=== PATIENT | female | born 2000 | race Caucasian/White ===

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

== ENCOUNTER 2019-06-21 06:22 | Inpatient (IN) ==
[2019-06-21] MEDS ORDERED: RINGER'S SOLUTION,LACTATED 1,000 ML IV PRN (07:51)
[2019-06-21] MEDS ORDERED: OXYTOCIN/DEXTROSE 5%-WATER 30 UNITS/500 ML BAG IV ONE ×2 (07:51→16:45)
[2019-06-21] MEDS ORDERED: RINGER'S SOLUTION,LACTATED 1,000 ML IV ONE (07:51)
[2019-06-21] MEDS ORDERED: PENICILLIN G POTASSIUM 5 MILLIONUNT in DEXTROSE 5 % IN WATER 100 ML IV ONE ×2 (07:51)
[2019-06-21 08:22] LABS: Hematocrit 33.1 % (37.0-47.0); Hemoglobin 10.8 gm/dL (12.5-16.0); Mean Cell Volume 83.6 fl (78-100); Mean Corpuscular Hemoglobin 27.3 pg (27-31); Mean Corpuscular Hgb Conc 32.6 g/dl (32-36); Mean Platelet Volume 10.1 fl (8-12.5); Neutrophil # 7.1 K/mm3 (1.3-6.0); Neutrophil % 66.4 % (42-75.0); Platelet Count 303 K/mm3 (150-450); Red Blood Count 3.96 M/mm3 (4.2-5.4); Red Cell Distribution Width 13.8 % (11.5-14.0); White Blood Count 10.7 K/mm3 (4.0-10.5)
[2019-06-21 08:37] LABS: Cocaine Ur Negative (NEGATIVE); Urine Barbiturate Negative (NEGATIVE); Urine Benzodiazepines Negative (NEGATIVE); Urine Opiates Negative (NEGATIVE); Urine PCP Negative (NEGATIVE); Urine THC Negative (NEGATIVE)
--- NOTE | 2019-06-21 10:22 | HP ---
Chief Complaint - Chief Complaint Date of Service: 06/21/19 Time of Service: 10:15 Chief Complaint: Labor, rupture of membranes History of Present Illness: 19 year old @ 37w 0d who presents to labor and delivery complaining of regular contractions and loss of fluid since 0200. She denies vaginal bleeding. Fetus is active. Medical History (Updated 10/30/18 @ 06:10 by Ab Boo MD) Premature rupture of membranes (PROM) affecting first (Acute) Onset Date: ~08/2018 labor in third trimester (Acute) Onset Date: ~08/2018 History of marijuana use (Acute) Onset Date: ~08/2018 Insufficient care (Acute) Onset Date: ~08/2018 Rubella non-immune status, antepartum (Acute) Onset Date: ~08/2018 Bipolar disorder (Acute) Onset Date: Unknown Anxiety and depression (Acute) Onset Date: Unknown Chlamydia Onset Date: ~08/2018 History of substance use Onset Date: ~08/2018 Premature delivery Onset Date: 08/13/18 @ 35 wks Unspecified congenital anomaly of heart 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 Surgical History: Surgical History (Updated 10/30/18 @ 04:13 by Yarelis Millard RN) H/O dilation and curettage Onset Date: Unknown Previous back surgery Family History: Family History (Updated 08/13/18 @ 20:07 by Eric Stewart DO) Mother Factor V Leiden mutation Social History: (Last Reviewed 06/21/19 @ 10:18 by Nay Dey MD) Tobacco: Smoking Status: Current every day smoker tobacco type: cigars Review Of Systems (GEN) - Review of Systems Generalized/Overall Review: Present: No Symptoms Reported Genitourinary: Present: Other - contractions and loss of fluid Misc: All systems neg except as marked Immunizations: IMMUNIZATION HX Immunizations Up to Date Yes History of Influenza Vaccine No Hx Pneumococcal Vaccination No Allergies/Adverse Reactions: Allergies Allergy/AdvReac Type Severity Reaction Status Date / Time Influenza Virus Vaccines Allergy Verified 06/21/19 07:50 latex Allergy Verified 06/21/19 07:50 peanut Allergy Verified 06/21/19 07:50 Home Medications: HOME MEDICATIONS NK 06/21/19 [Last Taken Unknown] Exam - Exam Vital Signs: Vital Signs - Last Taken Temp 36.7 C 06/21/19 06:45 Pulse 71 06/21/19 06:45 Resp 18 06/21/19 06:45 BP 110/64 06/21/19 06:45 Pulse Ox 98 06/21/19 06:45 Constitutional: Present: Alert, Oriented x3, Cooperative, No distress Respiratory: Present: lungs clear, normal breath sounds Cardiovascular/Chest: Present: regular rate, rhythm, no murmur Abdomen: Present: soft, nontender, nondistended /Rectal: Present: Other - /- Extremity: Present: non-tender, no calf tenderness Skin Exam: Present: normal color, warm/dry, no cyanosis Appearance: Present: appropriate appearance Eye contact: Present: cooperative Thoughts: Present: normal thought pattern Diagnostic Studies: Abnormal Lab Results 06/21/19 Range/Units 08:10 WBC 10.7 H (4.0-10.5) K/mm3 RBC 3.96 L (4.2-5.4) M/mm3 Hgb 10.8 L (12.5-16.0) gm/dL Hct 33.1 L (37.0-47.0) % Immature Gran % (Auto) 1.00 H (0.001-0.429) % Immature Gran # (Auto) 0.11 H (0.000-0.0310) K/mm3 Neutrophils # 7.1 H (1.3-6.0) K/mm3 Laboratory Results WBC 10.7 K/mm3 (4.0-10.5) H 06/21/19 08:10 RBC 3.96 M/mm3 (4.2-5.4) L 06/21/19 08:10 Hgb 10.8 gm/dL (12.5-16.0) L 06/21/19 08:10 Hct 33.1 % (37.0-47.0) L 06/21/19 08:10 MCV 83.6 fl (78-100) 06/21/19 08:10 MCH 27.3 pg (27-31) 06/21/19 08:10 MCHC 32.6 g/dl (32-36) 06/21/19 08:10 RDW 13.8 % (11.5-14.0) 06/21/19 08:10 Plt Count 303 K/mm3 (150-450) 06/21/19 08:10 MPV 10.1 fl (8-12.5) 06/21/19 08:10 Immature Gran % (Auto) 1.00 % (0.001-0.429) H 06/21/19 08:10 Immature Gran # (Auto) 0.11 K/mm3 (0.000-0.0310) H 06/21/19 08:10 66.4 % (42-75.0) 06/21/19 08:10 22.2 % (20-51) 06/21/19 08:10 7.7 % (0.0-9) 06/21/19 08:10 2.1 % (0.0-3.0) 06/21/19 08:10 0.6 % (0.0-1.0) 06/21/19 08:10 Nucleated RBC % 0.0 k/mm3 (0-1) 06/21/19 08:10 7.1 K/mm3 (1.3-6.0) H 06/21/19 08:10 2.38 k/mm3 (1.5-3.5) 06/21/19 08:10 0.8 k/mm3 (0.0-1.0) 06/21/19 08:10 0.2 k/mm3 (0.0-0.7) 06/21/19 08:10 Absolute Basophils 0.1 k/mm3 (0.0-0.1) 06/21/19 08:10 Negative (NEGATIVE) 06/21/19 08:10 Negative (NEGATIVE) 06/21/19 08:10 Ur Phencyclidine Scrn Negative (NEGATIVE) 06/21/19 08:10 Urine Amphetamine Negative (NEGATIVE) 06/21/19 08:10 U Benzodiazepines Scrn Negative (NEGATIVE) 06/21/19 08:10 Negative (NEGATIVE) 06/21/19 08:10 Negative (NEGATIVE) 06/21/19 08:10 Blood Type A Positive 06/21/19 08:10 Antibody Screen Negative 06/21/19 08:10 Assessment/Plan - Narrative Narrative: 19 year old @ 37w 0d 1. Insufficient care 2. PROM: high leak, positive nitrazine, membranes palpated on examination 3. Initially unknown GBS status so treated with one dose of PCN. Results for GBS obtained and it is negative and thus antibiotics stopped 4. Labor: patient making cervical change from 2 cm on admission and was 6 cm recently 5. ventriculomegaly
--- NOTE | 2019-06-21 10:33 | PN ---
Angela Note - Interim Date: 06/21/19 Time: 10:31 Narrative: 06/21/19 10:31 Since the patient had a high leak AROM was undertaken. A very small amount of clear fluid noted cvx at 6 cm FHT is cat 1
[2019-06-21] MEDS ORDERED: PENICILLIN G POTASSIUM 2.5 MILLIONUNT in DEXTROSE 5 % IN WATER 100 ML IV SCH ×2 (12:00)
[2019-06-21] MEDS ORDERED: ONDANSETRON HCL/PF 2 MG/ML VIAL IV PRN (15:51)
[2019-06-21] MEDS ORDERED: NALOXONE HCL 1 MG/1 ML SYRG IV PRN (15:51)
[2019-06-21] MEDS ORDERED: BUPIVACAINE HCL/0.9 % NACL/PF 250 ML EP PRN (15:51)
[2019-06-21] MEDS ORDERED: fentaNYL CITRATE/PF 50 MCG/ML AMPUL IT SCH (16:00)
--- NOTE | 2019-06-21 16:22 | ANES ---
Anesthesia Pre Procedure Eval Vitals/Labs: Last Vital Signs Temp 36.7 C 06/21/19 06:45 Pulse 71 06/21/19 06:45 Resp 18 06/21/19 06:45 BP 110/64 06/21/19 06:45 Pulse Ox 98 06/21/19 06:45 HOME MEDICATIONS NK 06/21/19 [Last Taken Unknown] Allergies/Adverse Reactions: Allergies Allergy/AdvReac Type Severity Reaction Status Date / Time Influenza Virus Vaccines Allergy Verified 06/21/19 07:50 latex Allergy Verified 06/21/19 07:50 peanut Allergy Verified 06/21/19 07:50 - Planned Procedure Planned Procedure: rule out labor Medication List Reviewed:: Yes Allergies Verified: Yes Medical History (Updated 06/21/19 @ 10:22 by Nay Dey MD) Premature rupture of membranes (PROM) affecting first (Acute) Onset Date: ~08/2018 labor in third trimester (Acute) Onset Date: ~08/2018 History of marijuana use (Acute) Onset Date: ~08/2018 Insufficient care (Acute) Onset Date: ~08/2018 Rubella non-immune status, antepartum (Acute) Onset Date: ~08/2018 Bipolar disorder (Acute) Onset Date: Unknown Anxiety and depression (Acute) Onset Date: Unknown Chlamydia Onset Date: ~08/2018 History of substance use Onset Date: ~08/2018 Premature delivery Onset Date: 08/13/18 @ 35 wks Unspecified congenital anomaly of heart 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 Surgical History (Updated 06/21/19 @ 10:22 by Nay Dey MD) H/O dilation and curettage Onset Date: Unknown Previous back surgery Family History (Updated 08/13/18 @ 20:07 by Eric Stewart DO) Mother Factor V Leiden mutation - Family Anesthesia History Family History:: no untoward family reactions to anesthesia - Airway/Neck/Teeth Within Normal Limits:: Yes Teeth Condition: intact Neck Exam: full range of motion Mallampatti Score: 1 Thyromental (T-M) distance: > 6 cm Mandibulo Hyoid distance: > 3 cm - Respiratory Respiratory Physical: lungs clear Smoking Status: Current every day smoker Discussed smoking cessation including day of surgery: Yes Sleep Apnea currently treated: No Sleep Apnea by current assessment: No - Cardiovascular Tolerate Activity: Good Heart Sounds: S1 & S2, Regular - Anesthesia Assessment and Plan ASA Class: PS, II, E Anesthesia Type Plan: Spinal Planned difficult intubation/equipment available: No
--- NOTE | 2019-06-21 16:23 | ANES ---
Post Anesthesia Discharge - Transfer of Care Transfer of Care handoff given to nurse: Yes - Anesthesia Post Op Note Anesthesia Post Op Note: Care transferred to OB RN
--- NOTE | 2019-06-21 16:23 | ANES ---
Post Anesthesia Assessment - Vital Signs Vitals: Last Vital Signs Temp 36.7 C 06/21/19 06:45 Pulse 71 06/21/19 06:45 Resp 18 06/21/19 06:45 BP 110/64 06/21/19 06:45 Pulse Ox 98 06/21/19 06:45 Airway Patency: Normal - Mental Status Level Of Consciousness: Awake - Pain Level Pain Score: 0 - N/V Assessment Nausea/Vomiting Presence: None Dehydration:: No
--- NOTE | 2019-06-21 16:27 | ANES ---
Anesthesia Procedure Note Procedure Note: ANESTHESIA PROCEDURE NOTE Date of procedure: 06/21/2019. Time of procedure: 16 10. Performed by: Jd Olivo CRNA Crate Opener: None . Preprocedure diagnosis: Active labor. Post procedure diagnosis: Same. Procedure: Labor intrathecal Indications: Labor pain. Findings: Patient was placed in a right lateral decubitus position. Her back was prepped with DuraPrep and draped sterilely. 3 mL of 1% lidocaine was injected into the skin and subcutaneous tissue at the L3-4 interspace. Dura was punctured with a 25-gauge Soco spinal needle. 2.5 mg of 0.5% preservative- free Marcaine and 25 mcg of fentanyl was given intrathecally. Spinal needle was removed intact. EBL: Minimal. Fluids: N/A. Specimen: N/A. Post procedure condition: The patient tolerated the procedure well. No complications were noted. Thank you for this consultation Jd Olivo CRNA
[2019-06-21] MEDS ORDERED: SENNOSIDES 8.6 MG TABLET PO PRN (16:45)
[2019-06-21] MEDS ORDERED: BENZOCAINE/MENTHOL 81 SPRAY CAN TP PRN (16:45)
[2019-06-21] MEDS ORDERED: GLYCERIN/WITCH HAZEL LEAF 40 APPL BOX TP PRN (16:45)
[2019-06-21] MEDS ORDERED: BISACODYL 10 MG SUPP.RECT RC PRN (16:45)
[2019-06-21] MEDS ORDERED: diphenhydrAMINE HCL 25 MG CAPSULE PO PRN (16:45)
[2019-06-21] MEDS ORDERED: HYDROcodone/ACETAMINOPHEN 1 EACH TABLET PO PRN ×2 (16:45)
[2019-06-21] MEDS ORDERED: HYDROCORTISONE 30 APPL TUBE TP PRN (16:45)
--- NOTE | 2019-06-21 17:08 | OR ---
Operative Report - Dictated Report Narrative: Date of delivery: 06/21/2019 Time of delivery: 1636 Gender: male APGARS: 9/9 weight: 2878 grams Procedure: Description of the procedure: The patient is a 19 year old @ 37w 0d who presented to labor and delivery with insufficient care. She had care in two different facilities. She presented with rupture of membranes with a high leak and in labor. A small bag was ruptured. She progressed to complete dilation. She was pushing with very poor maternal effort secondary to pain and thus an epidural was offered to the patient and she underwent an intrathecal. She delivered a viable male in the TASIA presentation. The shoulders delivered followed by the rest of the body. The cord was clamped and cut and the was placed on the maternal abdomen. The placenta was delivered by expression and appeared intact. There were no lacerations. EBL: 200 mL Complications: none Specimen: placenta History for Definition: * The number of deliveries resulting in a live the patient experienced prior to current hospitalization * The previous delivery of live twins or any live multiple gestation is considered one live event. *If primagravida or nulliparous is documented select zero for the number of previous live births. Live Events: 1
[2019-06-22] MEDS: DOCUSATE SODIUM 100 MG CAPSULE PO SCH ×3 (01:53→20:38)
[2019-06-22] MEDS: IBUPROFEN 800 MG TABLET PO PRN ×2 (03:21→14:51)
--- NOTE | 2019-06-22 07:57 | PN ---
Subjective - Date and Time Seen Date: 06/22/19 Time: 07:56 Subjective Narrative: Patient without complaints Objective Objective Narrative: See vital signs - Review of Systems Generalized/Overall Review: Reports: No Symptoms Reported Misc: All systems neg except as marked - Vitals Vitals: Last Vital Signs Temp 36.2 C 06/22/19 03:15 Pulse 73 06/22/19 03:15 Resp 16 06/22/19 03:15 BP 111/52 06/22/19 03:15 Pulse Ox 99 06/22/19 03:15 - Abnormal Lab Findings Abnormal Lab Findings: Abnormal Lab Results 06/21/19 Range/Units 08:10 WBC 10.7 H (4.0-10.5) K/mm3 RBC 3.96 L (4.2-5.4) M/mm3 Hgb 10.8 L (12.5-16.0) gm/dL Hct 33.1 L (37.0-47.0) % Immature Gran % (Auto) 1.00 H (0.001-0.429) % Immature Gran # (Auto) 0.11 H (0.000-0.0310) K/mm3 Neutrophils # 7.1 H (1.3-6.0) K/mm3 - Exam Constitutional: Present: Alert, Oriented x3, Cooperative, No distress Abdomen: Present: soft, nontender, nondistended Extremity: Present: non-tender, no calf tenderness Skin Exam: Present: normal color, warm/dry, no cyanosis Appearance: Present: appropriate appearance Eye contact: Present: cooperative Thoughts: Present: normal thought pattern Assessment/Plan Plan Narrative: PPD 1 s/p Doing well Discharge tomorrow
[2019-06-23] MEDS: IBUPROFEN 800 MG TABLET PO PRN (00:35)
--- NOTE | 2019-06-23 07:47 | PN ---
Subjective - Date and Time Seen Date: 06/23/19 Time: 07:45 Subjective Narrative: Patient without complaints Objective Objective Narrative: See vital signs - Review of Systems Generalized/Overall Review: Reports: No Symptoms Reported Misc: All systems neg except as marked - Vitals Vitals: Last Vital Signs Temp 36.8 C 06/23/19 00:44 Pulse 98 06/23/19 00:44 Resp 18 06/23/19 00:44 BP 123/63 06/23/19 00:44 Pulse Ox 97 06/23/19 00:44 - Exam Constitutional: Present: Alert, Oriented x3, Cooperative, No distress Abdomen: Present: soft, nontender, nondistended - fundus is firm Extremity: Present: non-tender, no calf tenderness Skin Exam: Present: normal color, warm/dry, no cyanosis Appearance: Present: appropriate appearance Eye contact: Present: cooperative Thoughts: Present: normal thought pattern Assessment/Plan Plan Narrative: PPD 2 s/p Doing well Discharge today Follow-up in 4 weeks
[2019-06-23 08:27] VITALS: BP 117/77
[2019-06-23] MEDS: DOCUSATE SODIUM 100 MG CAPSULE PO SCH (14:27)
== END 2019-06-23 13:35 | disposition home or self-care (01) | DRG 806 ==
LOC: OBCLINIC 06:22 → OB 07:49
PROVIDERS: ADMIT Obstetrics & Gynecology; ATTEND Obstetrics & Gynecology
CPT/HCPCS: 36415; 59025; 80307; 85025; 86850; 87081; 88307

== ENCOUNTER 2020-08-15 11:31 | Observation (INO) ==
--- NOTE | 2020-08-15 11:56 | ERNOTE ---
ER Female HPI Date of Service: 08/15/20 Stated Complaint: Excessive vaginal bleeding Presenting Symptoms: vaginal bleeding Time Seen by Provider: 08/15/20 11:38 Source: patient Immunizations: IMMUNIZATION HX Immunizations Up to Date Yes History of Influenza Vaccine No Hx Pneumococcal Vaccination No Allergies/Adverse Reactions: Allergies Influenza Virus Vaccines Allergy (Verified 08/15/20 11:45) latex Allergy (Verified 08/15/20 11:45) peanut Allergy (Verified 08/15/20 11:45) Home Medications: HOME MEDICATIONS NK 06/06/20 [Last Taken Unknown] - History of Present Illness Narrative: 20 year old A3 presents with two days of heavy vaginal bleeding (1 pad every hour) and constant, worsening, abdominal cramping with associated nausea and fatigue. Patient reports abdominal pain started approximately two hours after the onset of vaginal bleeding. Patient states that her periods are regular every 21 days, last about 5 days and has moderate bleeding with them (4 pads a day). L MP was two weeks prior. Patient reports delivery of her last child two months ago without complications. Denies emesis, headache, syncope, and SOB. She reports never STDs. Denies dysperunia. All her delivery were vaginal and last required induction as she was 5 days past due date, she was delivered in [place] and consider high risk according to patient. Timing: Present: constant Quality: Present: severe Onset Location: Present: RLQ, LLQ, periumbilical, suprapubic Activities at Onset: Present: none Prior Abdominal Problems: Present: similar symptoms, other - after last delivery Sexual [place] History: Present: single partner, other - last intercourse 1.5 weeks ago Modifying Factors - (Improves): Present: other - nsaid at 4 am, [place] Associated Symptoms: Present: denies symptoms. Absent: dysuria, urinary frequency Review of Systems - Review of Systems Constitutional: Absent: fever EYE: Absent: eye pain ENT: Absent: ear pain Respiratory: Absent: shortness of breath Cardiology: Absent: chest pain Gastrointestinal/Abdominal: Present: nausea, abdominal pain, other. Absent: vomiting, diarrhea Genitourinary: Present: other. Absent: dysuria Musculoskeletal: Absent: back pain Skin: Absent: rash Neurological: Present: See HPI. Absent: anxiety, depressed Endocrine: Absent: excessive sweating Hematologic/Lymphatic: Absent: easy bruising All Other Systems: All systems neg except as marked Medical History (Last Reviewed 08/15/20 @ 11:45 by Mary Melgar RN) Premature rupture of membranes (PROM) affecting first (Acute) Onset Date: ~08/2018 labor in third trimester (Acute) Onset Date: ~08/2018 History of marijuana use (Acute) Onset Date: ~08/2018 Insufficient care (Acute) Onset Date: ~08/2018 Rubella non-immune status, antepartum (Acute) Onset Date: ~08/2018 Bipolar disorder (Acute) Onset Date: Unknown Anxiety and depression (Acute) Onset Date: Unknown Chlamydia Onset Date: ~08/2018 History of substance use Onset Date: ~08/2018 Premature delivery Onset Date: 08/13/18 @ 35 wks Unspecified congenital anomaly of heart 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 Surgical History: Surgical History (Last Reviewed 08/15/20 @ 11:45 by Mary Melgar RN) H/O dilation and curettage Onset Date: Unknown Previous back surgery Family History: Family History (Last Reviewed 08/15/20 @ 11:45 by Mary Melgar RN) Mother Factor V Leiden mutation Social History: (Last Reviewed 08/15/20 @ 11:45 by Mary Melgar RN) Tobacco: Smoking Status: Former smoker tobacco type: cigars Alcohol: alcohol intake: never alcohol intake frequency: holiday/special occasion Substance Use: substance use type: former substance user Physical Exam - Physical Exam General Appearance: Present: wd/wn, moderate distress Head Exam: Present: normal inspection Eye Exam: Normal inspection: bilateral, PERRL: bilateral, EOMI: bilateral Ears, Nose, Throat: Present: normal ENT inspection Neck: Present: normal inspection Respiratory: Present: no respiratory distress Cardiovascular/Chest: Present: regular rate, rhythm Peripheral Pulses: N=norm/S=strong/W=weak/B=bound/A=absent: Radial (R): Normal, Radial (L): Normal, Dorsalis-pedis (R): Normal, Dorsalis-pedis (L): Normal Gastrointestinal/Abdominal: Present: normal bowel sounds, other - pain on palpation of LLQ, suprapubic, periumbilical and RLQ Pelvic Exam: Present: tender adnexa, tender uterus, other - during pelvic exam: large amount of creamy, grayish, pinkish discharge, pain on palpation of right adnexa and uterus during bimanual examination Extremity Exam: Present: normal inspection Neurological Exam: Present: alert, oriented, normal mood/affect Skin Exam: Present: normal color Lymphatic Exam: Present: no adenopathy Progress - Results and Orders Patient's Lab Results:: I have reviewed the patient's lab results. - Vital Signs Patient's Vital Signs:: I have reviewed the patient's vital signs. Vital Signs: Vital Signs 08/15/20 11:42 08/15/20 11:53 Temperature 37.0 C Pulse Rate 100 101 H Respiratory Rate 18 Blood Pressure 104/59 O2 Sat by Pulse Oximetry 99 - CT/Ultrasound CT/Ultrasound Narrative: [facility] [address] [place] [address] NAME: Apryl Mckeon : 2000 MR #: [id number] CC: Tamie Rosa MD LOC: ER ADM DATE: DIS DATE: X-RAY REPORT ~[id number] CT/CT Abdomen/Pelvis W/C *~ Exam Date: 08/15/2020 13:35 Ordering Physician: Tamie Rosa MD History: Abdominal pain Technique: Multislice helical acquisition from the lung bases through the ischial tuberosities performed with IV contrast enhancement. Axial and coronal reconstruction images performed. Oral bowel contrast was not utilized for the exam. 100 cc of IV contrast. Individualized dose optimization technique was used for the performed procedure including automated exposure control, adjustment of the MA and or KV according to patient size and/or use of iterative reconstruction technique. Comparison: None. Findings: Lung bases are clear Upper abdominal soft tissue organs unremarkable as seen Gallbladder normal Retroperitoneal structures show no specific pathology Mild inflammatory changes seen in the lower mesentery lower pelvis near the site of recent delivery seen at 74 series 4 I cannot identify the appendix There is a small amount of fluid near the right adnexa that is probably in bowel loops see image 69 series 4 Large volume of retained stool in the rectosigmoid region Distal ureters are nonobstructed Proximal ureters and kidneys show no stones. The bladder shows mild residual retention of fluid/contrast uterus shows small amount of central residual fluid cannot rule out developing endometrial infection IMPRESSION: Large volume of retained stool Mild lower mesenteric and perivesicular inflammation correlate to urinalysis cannot exclude a urinary tract infection or some developing infection in the uterus Fluid in the endometrial canal No identifiable appendix No renal stone or obstruction Correlate with pelvic ultrasound Electronically signed by Eric Garsia MD. Eric Garsia MD Dict: 08/15/20 140 Typed: 08/15/20 1408/ 08/15/20 1415 NAME: Apryl Mckeon : 2000 MR #: [id number] CC: Tamie Rosa MD LOC: ER ADM DATE: DIS DATE: X-RAY REPORT ~[id number] ULT/US Pelvic Complete *~ Exam Date: 08/15/2020 14:28 Ordering Physician: Tamie Rosa MD History: Prior D&C Last menstrual period 3 weeks ago Technique: Transabdominal and transvaginal pelvic ultrasounds. Comparison: CT scan same day Findings: Uterus 8 x 5.4 x 3.7 cm total volume of 84 cc Endometrial fluid or stripe measures 8.4 mm appears to show some residual fluid with no complicating features. Subtle echogenicity in the fluid Overall dimensions of endometrial fluid 8.4 mm x 2.1 cm Left ovarian dominant follicle 1 cm Right ovary 3.3 x 1.8 x 1.6 cm Left ovary 3 x 1.3 x 2.2 cm Bilateral ovarian flow seen Mild amount of fluid in the cul-de-sac. No other specific pathology seen IMPRESSION: A SMALL RIND OF COMPLEX FLUID OR BLOOD REMAINS IN THE ENDOMETRIAL CANAL SMALL AMOUNT OF FLUID IN THE CUL-DE-SAC Electronically signed by Eric Garsia MD. Eric Garsia MD Dict: 08/15/20 1509 Typed: 08/15/20 1509/ 08/15/20 1513 - Progress/Reassessment Chief Complaint: Genitourinary Problem Progress Note-Subjective: 08/15/20 14:00 - patient got a dose of Ceftriaxone, for her vaginal discharge and leukocytoisis, and toradol and zofran 08/15/20 15:00 -patient is febrile will give an additional dose of antibiotic metronidazole 500 mg IV and 1 g of acetaminophen 08/15/20 15:[address] Dey, OBGYN [employer] grade teacher who asked sometime to review the imaging and will call back 08/15/20 15:55: Dr Dey, called back and agree with admission of patient for post- endometritis. Plan - Plan Plan: Patient is 20 years old female A3, 2 months, who presented complaining of lower abdominal pain, vaginal bleeding, and found to have large amount of opaque grayish and pinkish discharge from cervix, and pain on bimanual examination of the uterus. CT of abdomen and pelvis and ultrasounds are both concerning for uterine infection. Patient labs also revealed a leukocytosis of 18.9, fever of 38 Celsius, and wet mount was positive for clue cell. Patient received a dose of ceftriaxone and Flagyl IV in the ED and Toradol and acetaminophen for pain and fever. Case was discussed with Dr. Dey, [facility], who accepted admission. Patient is agreeable for admission Departure Clinical Impression: Bacterial vaginosis, endometritis - Departure Disposition: Still a patient Condition: Stable
[2020-08-15] MEDS ORDERED: KETOROLAC TROMETHAMINE 30 MG/ML VIAL IM ONE (12:17)
[2020-08-15] MEDS ORDERED: ONDANSETRON 4 MG TAB.RAPDIS PO ONE (12:28)
[2020-08-15 12:31] LABS: Hematocrit 37.2 % (37.0-47.0); Hemoglobin 11.6 gm/dL (12.5-16.0); Mean Corpuscular Hemoglobin 26.2 pg (27-31); Mean Corpuscular Hgb Conc 31.2 g/dl (32-36); Mean Platelet Volume 9.3 fl (8-12.5); Neutrophil # 16.4 K/mm3 (1.3-6.0); Neutrophil % 86.9 % (42-75.0); Platelet Count 356 K/mm3 (150-450); Red Blood Count 4.43 M/mm3 (4.2-5.4); White Blood Count 18.9 K/mm3 (4.0-10.5)
[2020-08-15 12:44] LABS: Albumin * 3.6 gm/dl (3.4-5.0); Anion Gap 12.4 mmol/L (6.8-13.8); BUN/Creatinine Ratio 18.8 (9.0-21.6); Bilirubin, Total 0.6 mg/dL (0.0-1.1); Potassium 3.4 mmol/L (3.4-4.6); Total Protein 7.4 gm/dL (6.2-8.2)
[2020-08-15 12:56] LABS: Urine Bilirubin Negative (NEGATIVE); Urine Blood Negative /ul (NEGATIVE); Urine Ketone Negative (NEGATIVE); Urine Nitrite Negative (NEGATIVE); Urine Protein Negative (NEGATIVE); Urine Urobilinogen Normal (NORMAL); Urine pH 5.5 pH (5.0-7.0)
[2020-08-15 13:12] LABS: Urine Appearance Clear (CLEAR); Urine Color Yellow
[2020-08-15 13:14] LABS: Urine Bacteria TRACE; Urine RBC 0-5 /hpf (0-5); Urine WBC TRACE /hpf (0-5)
[2020-08-15] MEDS ORDERED: cefTRIAXone SODIUM 1,000 MG/100 ML BAG IV ONE (13:17)
[2020-08-15] MEDS ORDERED: ACETAMINOPHEN 500 MG TABLET PO ONE (15:09)
[2020-08-15] MEDS ORDERED: metroNIDAZOLE/SODIUM CHLORIDE 500 MG/100 ML BAG IV SCH (15:15)
[2020-08-15] MEDS ORDERED: MORPHINE SULFATE 2 MG/ML DISP.SYRIN IV PRN (15:49)
[2020-08-15] MEDS ORDERED: ACETAMINOPHEN 500 MG TABLET PO PRN (15:49)
[2020-08-15] MEDS ORDERED: HYDROcodone/ACETAMINOPHEN 1 EACH TABLET PO PRN (15:50)
[2020-08-15] MEDS ORDERED: RINGER'S SOLUTION,LACTATED 1,000 ML IV PRN (15:55)
[2020-08-15] MEDS: CLINDAMYCIN IN 0.9 % SOD CHLOR 900 MG/50 ML BAG IV SCH ×2 (16:48→23:39)
[2020-08-15] MEDS ORDERED: WATER IV SCH ×2 (17:00)
[2020-08-15] MEDS ORDERED: GENTAMICIN SULFATE IV SCH ×2 (17:00)
[2020-08-15] MEDS ORDERED: DEXTROSE 5% IV SCH ×2 (17:00)
--- NOTE | 2020-08-15 17:04 | HP ---
Chief Complaint - Chief Complaint Date of Service: 08/15/20 Time of Service: 16:46 Chief Complaint: vaginal bleeding, abdominal pain History of Present Illness: 20 year old who is approximately 2 months who presents with acute onset of vaginal bleeding that has now resolved. She also had acute onset of abdominal pain. The patient received toradol in the emergency department and now her pain is 2/10. The patient delivered at the [place] on 06/16/2020. She reports that her delivery was uncomplicated other than the requirement for resuscitation due to nuchal cord per report. She denies any other complications. She reports that she has had intercourse 2-3 times since delivery with the most recent intercourse approximately 1 week and a half ago. She denies any history of STIs. She reports she is done with child bearing but she is not on any contraception. Medical History (Last Reviewed 08/15/20 @ 16:46 by Nay Dey MD) Premature rupture of membranes (PROM) affecting first (Acute) Onset Date: ~08/2018 labor in third trimester (Acute) Onset Date: ~08/2018 History of marijuana use (Acute) Onset Date: ~08/2018 Insufficient care (Acute) Onset Date: ~08/2018 Rubella non-immune status, antepartum (Acute) Onset Date: ~08/2018 Bipolar disorder (Acute) Onset Date: Unknown Anxiety and depression (Acute) Onset Date: Unknown Chlamydia Onset Date: ~08/2018 History of substance use Onset Date: ~08/2018 Premature delivery Onset Date: 08/13/18 @ 35 wks Unspecified congenital anomaly of heart 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 Surgical History: Surgical History (Last Reviewed 08/15/20 @ 16:46 by Nay Dey MD) H/O dilation and curettage Onset Date: Unknown Previous back surgery Family History: Family History (Last Reviewed 08/15/20 @ 16:46 by Nay Dey MD) Mother Factor V Leiden mutation Social History: (Last Reviewed 08/15/20 @ 16:46 by Nay Dey MD) Tobacco: Smoking Status: Former smoker tobacco type: cigars Alcohol: alcohol intake: never alcohol intake frequency: holiday/special occasion Substance Use: substance use type: former substance user Review Of Systems (GEN) - Review of Systems Generalized/Overall Review: Present: No Symptoms Reported Misc: All systems neg except as marked Immunizations: IMMUNIZATION HX Immunizations Up to Date Yes History of Influenza Vaccine No Hx Pneumococcal Vaccination No Allergies/Adverse Reactions: Allergies Allergy/AdvReac Type Severity Reaction Status Date / Time Influenza Virus Vaccines Allergy Verified 08/15/20 11:45 latex Allergy Verified 08/15/20 11:45 peanut Allergy Verified 08/15/20 11:45 Home Medications: HOME MEDICATIONS NK 06/06/20 [Last Taken Unknown] Exam - Exam Vital Signs: Vital Signs - Last Taken Temp 36.8 C 08/15/20 16:27 Pulse 90 08/15/20 16:27 Resp 20 08/15/20 16:27 BP 98/50 08/15/20 16:27 Pulse Ox 99 08/15/20 16:27 Constitutional: Present: Alert, Oriented x3, Cooperative, No distress ENT Exam: Present: hearing grossly normal Eye Exam: bilateral eye: normal inspection Neck: Present: normal inspection Back Exam: Present: normal inspection Breasts: Present: Exam deferred Respiratory: Present: lungs clear, normal breath sounds, no respiratory distress Cardiovascular/Chest: Present: regular rate, rhythm Abdomen: Present: soft, nondistended, no rebound tenderness - tenderness to palpation over the uterus /Rectal: Present: Exam deferred Extremity: Present: non-tender, no calf tenderness Skin Exam: Present: normal color, warm/dry, no cyanosis Neurologic: Present: alert, normal mood/affect, oriented x 3 Appearance: Present: appropriate appearance, appropriate insight, neat, no memory impairment Eye contact: Present: cooperative, good eye contact, normal speech Thoughts: Present: normal thought pattern Diagnostic Studies: Abnormal Lab Results 08/15/20 08/15/20 Range/Units 12:26 12:29 WBC 18.9 H (4.0-10.5) K/mm3 Hgb 11.6 L (12.5-16.0) gm/dL MCH 26.2 L (27-31) pg MCHC 31.2 L (32-36) g/dl Immature Gran % (Auto) 0.50 H (0.001-0.429) % Immature Gran # (Auto) 0.10 H (0.000-0.0310) K/mm3 Neutrophils % 86.9 H (42-75.0) % Lymphocytes % 8.2 L (20-51) % Neutrophils # 16.4 H (1.3-6.0) K/mm3 Urine WBC Trace H (0-5) /hpf Microbiology 08/15/20 12:29 Wet Prep - Final Vaginal Laboratory Results WBC 18.9 K/mm3 (4.0-10.5) H 08/15/20 12:26 RBC 4.43 M/mm3 (4.2-5.4) 08/15/20 12: Hgb 11.6 gm/dL (12.5-16.0) L 08/15/20 12: Hct 37.2 % (37.0-47.0) 08/15/20 12: MCV 84.0 fl (78-100) 08/15/20 12: MCH 26.2 pg (27-31) L 08/15/20 12: MCHC 31.2 g/dl (32-36) L 08/15/20 12: RDW 14.0 % (11.5-14.0) 08/15/20 12: Plt Count 356 K/mm3 (150-450) 08/15/20 12: MPV 9.3 fl (8-12.5) 08/15/20 12: Immature Gran % (Auto) 0.50 % (0.001-0.429) H 08/15/20 12: Immature Gran # (Auto) 0.10 K/mm3 (0.000-0.0310) H 08/15/20 12: Neutrophils % 86.9 % (42-75.0) H 08/15/20 12: Lymphocytes % 8.2 % (20-51) L 08/15/20 12: Monocytes % 3.8 % (0.0-9) 08/15/20 12: Eosinophils % 0.3 % (0.0-3.0) 08/15/20 12: Basophils % 0.3 % (0.0-1.0) 08/15/20 12: Nucleated RBC % 0.0 k/mm3 (0-1) 08/15/20 12: Neutrophils # 16.4 K/mm3 (1.3-6.0) H 08/15/20 12: Lymphocytes # 1.54 k/mm3 (1.5-3.5) 08/15/20 12:26 Monocytes # 0.7 k/mm3 (0.0-1.0) 08/15/20 12:26 Eosinophils # 0.1 k/mm3 (0.0-0.7) 08/15/20 12:26 Absolute Basophils 0.1 k/mm3 (0.0-0.1) 08/15/20 12:26 Sodium 138 mmol/L (132-142) 08/15/20 12:26 Plasma Sodium 138 mmol/L (130-142) 08/15/20 12:26 Potassium 3.4 mmol/L (3.4-4.6) 08/15/20 12:26 Chloride 104 mmol/L (97-106) 08/15/20 12:26 Carbon Dioxide 25.0 mmol/L (24-32.6) 08/15/20 12:26 Anion Gap 12.4 mmol/L (6.8-13.8) 08/15/20 12:26 BUN 19 mg/dL (3-23) 08/15/20 12:26 Creatinine 0.95 mg/dL (0.4-1.4) 08/15/20 15:53 Est GFR (Non-Af Amer) 74 mL/min (60-130) D 08/15/20 12:26 BUN/Creatinine Ratio 18.8 (9.0-21.6) 08/15/20 12:26 Random Glucose 102 mg/dL (70-110) 08/15/20 12:26 Lactic Acid, Venous 0.8 mmol/L (0.4-2.0) 08/15/20 12:26 Calcium 9.0 mg/dL (7.9-10.9) 08/15/20 12:26 Calcium Adj for Albumin 9.0 mg/dL (8.4-10.2) 08/15/20 12:26 Total Bilirubin 0.6 mg/dL (0.0-1.1) 08/15/20 12:26 AST 13 U/L (0-48) 08/15/20 12:26 ALT 23 U/L (19-67) 08/15/20 12:26 Alkaline Phosphatase 63 U/L (50-170) 08/15/20 12:26 Total Protein 7.4 gm/dL (6.2-8.2) 08/15/20 12:26 Albumin 3.6 gm/dl (3.4-5.0) 08/15/20 12: Procalcitonin 0.43 ng/mL (0.05-0.50) 08/15/20 12: Urine Color Yellow 08/15/20 12:29 Urine Appearance Clear (CLEAR) 08/15/20 12: Urine pH 5.5 pH (5.0-7.0) 08/15/20 12: Ur Specific [place] 1.020 SP.GR. (1.005-1.010) 08/15/20 12: Urine Protein Negative mg/dL (NEGATIVE) 08/15/20 12: Urine Glucose (UA) Negative mg/dL (NEGATIVE) 08/15/20 12: Urine Ketones Negative mg/dL (NEGATIVE) 08/15/20 12: Urine Blood Negative /ul (NEGATIVE) 08/15/20 12: Urine Nitrate Negative (NEGATIVE) 08/15/20 12: Urine Bilirubin Negative mg/dl (NEGATIVE) 08/15/20 12: Urine Urobilinogen Normal EU/dl (NORMAL) 08/15/20 12:29 Ur Leukocyte Esterase Negative /ul (NEGATIVE) 08/15/20 12: Urine RBC 0-5 /hpf (0-5) 08/15/20 12:29 Urine WBC Trace /hpf (0-5) H 08/15/20 12:29 Ur Epithelial Cells Trace /hpf (0-5) 08/15/20 12:29 Urine Bacteria Trace (NONE) 08/15/20 12: Urine Culture Comments Culture to follow 08/15/20 12: Urine HCG, Qual Negative (NEGATIVE) 08/15/20 12:29 Assessment/Plan - Narrative Narrative: 20 year old approximately 2 months 1. endometritis with fluid seen in the endometrium: currently afebrile after the patient received a gram of tylenol. Tylenol PRN ordered for additional fevers. Triple antibiotics ordered. Recheck CBC in the AM. Plan to discharge after 24 hours afebrile on PO augmentin. 2. Contraceptive counseling: discussed Depo-Provera. The patient will let me know tomorrow if she desires Depo-Provera 3. Leukocytosis: recheck CBC in the AM The plan of care was discussed with the patient and her nurse - Assessment/Plan (1) Status post normal vaginal delivery Problem: Acute (2) General counseling and advice for contraceptive management Problem: Acute (3) Bacterial vaginosis Problem: Acute (4) endometritis Problem: Acute (5) Leukocytosis Problem: Acute (6) Fluid in endometrial cavity Problem: Acute
[2020-08-15] MEDS: AMPICILLIN SODIUM 2,000 MG in NORMAL SALINE 100 ML IV SCH ×2 (17:59→22:58)
[2020-08-16] MEDS: HYDROcodone/ACETAMINOPHEN 1 EACH TABLET PO PRN ×2 (04:01→19:21)
[2020-08-16] MEDS: AMPICILLIN SODIUM 2,000 MG in NORMAL SALINE 100 ML IV SCH ×5 (04:01→22:14)
[2020-08-16 06:16] LABS: Hematocrit 32.1 % (37.0-47.0); Hemoglobin 10.1 gm/dL (12.5-16.0); Mean Cell Volume 83.2 fl (78-100); Mean Corpuscular Hemoglobin 26.2 pg (27-31); Mean Corpuscular Hgb Conc 31.5 g/dl (32-36); Mean Platelet Volume 9.3 fl (8-12.5); Neutrophil # 13.9 K/mm3 (1.3-6.0); Neutrophil % 84.8 % (42-75.0); Platelet Count 303 K/mm3 (150-450); Red Blood Count 3.86 M/mm3 (4.2-5.4); Red Cell Distribution Width 14.1 % (11.5-14.0); White Blood Count 16.4 K/mm3 (4.0-10.5)
--- NOTE | 2020-08-16 06:35 | PN ---
Subjective - Date and Time Seen Date: 08/16/20 Time: 06:32 Subjective Narrative: The patient reports she feels a lot better. Her abdominal pain is much improved as well. Objective Objective Narrative: See vital signs Afebrile since admission - Review of Systems Generalized/Overall Review: Reports: No Symptoms Reported Misc: All systems neg except as marked - Vitals Vitals: Last Vital Signs Temp 37.9 C 08/16/20 01:30 Pulse 107 H 08/16/20 01:30 Resp 18 08/16/20 01:30 BP 96/46 08/16/20 01:30 Pulse Ox 97 08/16/20 01:30 - Abnormal Lab Findings Abnormal Lab Findings: Abnormal Lab Results 08/15/20 08/15/20 08/16/20 Range/Units 12:26 12:29 06:05 WBC 18.9 H 16.4 H (4.0-10.5) K/mm3 RBC 3.86 L (4.2-5.4) M/mm3 Hgb 11.6 L 10.1 L (12.5-16.0) gm/dL Hct 32.1 L (37.0-47.0) % MCH 26.2 L 26.2 L (27-31) pg MCHC 31.2 L 31.5 L (32-36) g/dl RDW 14.1 H (11.5-14.0) % Immature Gran % (Auto) 0.50 H 0.90 H (0.001-0.429) % Immature Gran # (Auto) 0.10 H 0.14 H (0.000-0.0310) K/mm3 Neutrophils % 86.9 H 84.8 H (42-75.0) % Lymphocytes % 8.2 L 9.2 L (20-51) % Neutrophils # 16.4 H 13.9 H (1.3-6.0) K/mm3 Urine WBC Trace H (0-5) /hpf - Exam Constitutional: Present: Alert, Oriented x3, Cooperative, No distress ENT Exam: Present: hearing grossly normal Respiratory: Present: lungs clear, normal breath sounds Cardiovascular/Chest: Present: regular rate, rhythm Abdomen: Present: soft, nontender, nondistended Extremity: Present: non-tender, no calf tenderness Skin Exam: Present: normal color, warm/dry, no cyanosis Neurologic: Present: alert, normal mood/affect, oriented x 3 Appearance: Present: appropriate appearance, appropriate insight, neat, no memory impairment Eye contact: Present: cooperative, good eye contact, normal speech Thoughts: Present: normal thought pattern Assessment/Plan Plan Narrative: 20 year old admitted overnight with endometritis Much improved Leukocytosis improving Abdominal tenderness resolved Discharge on a course of oral augmentin for 10 days Declines depo-Provera for contraception Follow-up with your [employer]NAGER next week or sooner for any other concerns - Problems/Diagnosis (1) Status post normal vaginal delivery Problem: Acute (2) General counseling and advice for contraceptive management Problem: Acute (3) Bacterial vaginosis Problem: Acute (4) endometritis Problem: Acute (5) Leukocytosis Problem: Acute (6) Fluid in endometrial cavity Problem: Acute
--- NOTE | 2020-08-16 06:41 | DS ---
(1) Status post normal vaginal delivery Problem: Acute (2) General counseling and advice for contraceptive management Problem: Acute (3) Bacterial vaginosis Problem: Acute (4) endometritis Problem: Acute (5) Leukocytosis Problem: Acute (6) Fluid in endometrial cavity Problem: Acute Date of Discharge:: 08/16/20 Hospital Course: Patient admitted overnight for IV antibiotics. Remains afebrile. Discharge after afebrile for 24 hours. Procedures Performed: none Results and Findings: Lab Pending Results 08/15/20 12:22: Procalcitonin 0.43 08/15/20 12:26: WBC 18.9 H, RBC 4.43, Hgb 11.6 L, Hct 37.2, MCV 84.0, MCH 26.2 L, MCHC 31.2 L, RDW 14.0, Plt Count 356, MPV 9.3, Immature Gran % (Auto) 0.50 H, Immature Gran # (Auto) 0.10 H, Neutrophils % 86.9 H, Lymphocytes % 8.2 L, Monocytes % 3.8, Eosinophils % 0.3, Basophils % 0.3, Nucleated RBC % 0.0, Neutrophils # 16.4 H, Lymphocytes # 1.54, Monocytes # 0.7, Eosinophils # 0.1, Absolute Basophils 0.1 08/15/20 12:26: Sodium 138, Plasma Sodium 138, Potassium 3.4, Chloride 104, Carbon Dioxide 25.0, Anion Gap 12.4, BUN 19, Creatinine 1.01, Est GFR (Non-Af Amer) 74 D, BUN/Creatinine Ratio 18.8, Random Glucose 102, Calcium 9.0, Calcium Adj for Albumin 9.0, Total Bilirubin 0.6, AST 13, ALT 23, Alkaline Phosphatase 63, Total Protein 7.4, Albumin 3.6 08/15/20 12:26: Lactic Acid, Venous 0.8 08/15/20 12:29: Urine HCG, Qual Negative 08/15/20 12:29: Urine Color Yellow, Urine Appearance Clear, Urine pH 5.5, Ur Specific [place] 1.020, Urine Protein Negative, Urine Glucose (UA) Negative, Urine Ketones Negative, Urine Blood Negative, Urine Nitrate Negative, Urine Bilirubin Negative, Urine Urobilinogen Normal, Ur Leukocyte Esterase Negative, Urine RBC 0-5, Urine WBC Trace H, Ur Epithelial Cells Trace, Urine Bacteria Trace, Urine Culture Comments Culture to follow 08/15/20 15:53: Creatinine 0.95 08/16/20 06:05: WBC 16.4 H, RBC 3.86 L, Hgb 10.1 L, Hct 32.1 L, MCV 83.2, MCH 26.2 L, MCHC 31.5 L, RDW 14.1 H, Plt Count 303, MPV 9.3, Immature Gran % (Auto) 0.90 H, Immature Gran # (Auto) 0.14 H, Neutrophils % 84.8 H, Lymphocytes % 9.2 L, Monocytes % 4.3, Eosinophils % 0.6, Basophils % 0.2, Nucleated RBC % 0.0, Neutrophils # 13.9 H, Lymphocytes # 1.50, Monocytes # 0.7, Eosinophils # 0.1, Absolute Basophils 0.0 Discharge Location: Home Disposition: Home self-care Condition: Good Discharge Activity: Activity as tolerated, Other - No intercourse until infection resolves Discharge Diet: General/regular food Additional Patient Instructions (free text): No intercourse until infection resolves Prescriptions (Any new or edited meds): Amox Tr/Potassium Clavulanate [Augmentin 875-125 Tablet] 875 mg PO Q12H #20 tab Transmission Status: Pending to [facility] #[id number] Complete Home Medications List: Complete Home Medication List: Amox Tr/Potassium Clavulanate [Augmentin 875-125 Tablet] 875 mg PO Q12H #20 tab 08/16/20
[2020-08-16] MEDS: CLINDAMYCIN IN 0.9 % SOD CHLOR 900 MG/50 ML BAG IV SCH ×2 (07:26→16:06)
[2020-08-16] MEDS ORDERED: DEXTROSE 5% IV SCH ×2 (17:00)
[2020-08-16] MEDS ORDERED: WATER IV SCH ×2 (17:00)
[2020-08-16] MEDS ORDERED: GENTAMICIN SULFATE IV SCH ×2 (17:00)
[2020-08-17] MEDS: CLINDAMYCIN IN 0.9 % SOD CHLOR 900 MG/50 ML BAG IV SCH ×2 (02:19→07:06)
[2020-08-17] MEDS: HYDROcodone/ACETAMINOPHEN 1 EACH TABLET PO PRN (04:36)
[2020-08-17] MEDS: AMPICILLIN SODIUM 2,000 MG in NORMAL SALINE 100 ML IV SCH ×2 (04:37→09:45)
--- NOTE | 2020-08-17 08:37 | PN ---
Subjective - Date and Time Seen Date: 08/17/20 Time: 08:35 Subjective Narrative: The patient reports she feels much better today Objective Objective Narrative: See vital signs Afebrile since admission - Review of Systems Generalized/Overall Review: Reports: No Symptoms Reported Misc: All systems neg except as marked - Vitals Vitals: Last Vital Signs Temp 36.6 C 08/17/20 07:00 Pulse 102 H 08/17/20 07:00 Resp 12 08/17/20 07:00 BP 101/47 08/17/20 07:00 Pulse Ox 96 08/17/20 07:00 - Exam Constitutional: Present: Alert, Oriented x3, Cooperative, No distress Abdomen: Present: soft, nontender, nondistended Extremity: Present: non-tender, no calf tenderness Skin Exam: Present: normal color, warm/dry, no cyanosis Neurologic: Present: alert, normal mood/affect, oriented x 3 Appearance: Present: appropriate appearance Eye contact: Present: cooperative Thoughts: Present: normal thought pattern Assessment/Plan Plan Narrative: HD #2 for PP endometritis Last fever at 10 am. Discharge after afebrile for 24 hours Abdominal tenderness completely resolved Patient instructed to return for increasing abdominal pain, foul smelling vaginal discharge or temperature greater than 100.4F or sooner for any other concerns The patient should follow-up with her doctor next week - Problems/Diagnosis (1) Status post normal vaginal delivery Problem: Acute (2) General counseling and advice for contraceptive management Problem: Acute (3) Bacterial vaginosis Problem: Acute (4) endometritis Problem: Acute (5) Leukocytosis Problem: Acute (6) Fluid in endometrial cavity Problem: Acute
--- NOTE | 2020-08-17 08:44 | DS ---
(1) Status post normal vaginal delivery Problem: Acute (2) General counseling and advice for contraceptive management Problem: Acute (3) Bacterial vaginosis Problem: Acute (4) endometritis Problem: Acute (5) Leukocytosis Problem: Acute (6) Fluid in endometrial cavity Problem: Acute Hospital Course: Patient for IV antibiotics. Discharge after afebrile for 24 hours. Procedures Performed: none Results and Findings: Pending Mircobiology Results 08/15/20 13:15 Blood Blood Culture - Preliminary NO GROWTH 24 HOURS 08/15/20 12:22 Blood Blood Culture - Preliminary NO GROWTH 24 HOURS 08/15/20 12:29 Vaginal Vaginal/Cervical Culture - Preliminary Beta Hemolytic Strep Lab Pending Results 08/15/20 12:22: Procalcitonin 0.43 08/15/20 12:26: WBC 18.9 H, RBC 4.43, Hgb 11.6 L, Hct 37.2, MCV 84.0, MCH 26.2 L, MCHC 31.2 L, RDW 14.0, Plt Count 356, MPV 9.3, Immature Gran % (Auto) 0.50 H, Immature Gran # (Auto) 0.10 H, Neutrophils % 86.9 H, Lymphocytes % 8.2 L, Monocytes % 3.8, Eosinophils % 0.3, Basophils % 0.3, Nucleated RBC % 0.0, Neutrophils # 16.4 H, Lymphocytes # 1.54, Monocytes # 0.7, Eosinophils # 0.1, Absolute Basophils 0.1 08/15/20 12:26: Sodium 138, Plasma Sodium 138, Potassium 3.4, Chloride 104, Carbon Dioxide 25.0, Anion Gap 12.4, BUN 19, Creatinine 1.01, Est GFR (Non-Af Amer) 74 D, BUN/Creatinine Ratio 18.8, Random Glucose 102, Calcium 9.0, Calcium Adj for Albumin 9.0, Total Bilirubin 0.6, AST 13, ALT 23, Alkaline Phosphatase 63, Total Protein 7.4, Albumin 3.6 08/15/20 12:26: Lactic Acid, Venous 0.8 08/15/20 12:29: Urine HCG, Qual Negative 08/15/20 12:29: Urine Color Yellow, Urine Appearance Clear, Urine pH 5.5, Ur Specific [place] 1.020, Urine Protein Negative, Urine Glucose (UA) Negative, Urine Ketones Negative, Urine Blood Negative, Urine Nitrate Negative, Urine Bilirubin Negative, Urine Urobilinogen Normal, Ur Leukocyte Esterase Negative, Urine RBC 0-5, Urine WBC Trace H, Ur Epithelial Cells Trace, Urine Bacteria Trace, Urine Culture Comments Culture to follow 08/15/20 15:53: Creatinine 0.95 08/16/20 06:05: WBC 16.4 H, RBC 3.86 L, Hgb 10.1 L, Hct 32.1 L, MCV 83.2, MCH 26.2 L, MCHC 31.5 L, RDW 14.1 H, Plt Count 303, MPV 9.3, Immature Gran % (Auto) 0.90 H, Immature Gran # (Auto) 0.14 H, Neutrophils % 84.8 H, Lymphocytes % 9.2 L, Monocytes % 4.3, Eosinophils % 0.6, Basophils % 0.2, Nucleated RBC % 0.0, Neutrophils # 13.9 H, Lymphocytes # 1.50, Monocytes # 0.7, Eosinophils # 0.1, Absolute Basophils 0.0 Discharge Location: Home Disposition: Home self-care Condition: Good Discharge Activity: Activity as tolerated Discharge Diet: General/regular food Additional Patient Instructions (free text): No intercourse until infection resolves Return to your nearest emergency department if you have increased abdominal tenderness, foul smelling vaginal discharge, temperature greater than 100.4 or sooner for any other concerns Prescriptions (Any new or edited meds): Amox Tr/Potassium Clavulanate [Augmentin 875-125 Tablet] 875 mg PO Q12H #20 tab Transmission Status: Received by [facility] #[id number] Complete Home Medications List: Complete Home Medication List: Amox Tr/Potassium Clavulanate [Augmentin 875-125 Tablet] 875 mg PO Q12H #20 tab 08/16/20
[2020-08-17 11:40] VITALS: BP 118/62
== END 2020-08-17 12:00 | disposition home or self-care (01) ==
LOC: MS 11:31 → ER 11:31 → MS 16:14
PROVIDERS: ADMIT Obstetrics & Gynecology; ATTEND Obstetrics & Gynecology
DX: O86.12 Endometritis following delivery; R10.9 Unspecified abdominal pain; N89.8 Other specified noninflammatory disorders of vagina